=== PATIENT | female | born 1990 | race Caucasian/White ===

== ENCOUNTER 2020-05-01 08:37 | Outpatient (REF) | payer MEDICARE, MEDICAID, SELFPAY | END 2020-05-01 08:38 | disposition home or self-care (01) | LOC: HO.WFDLDS 08:37 | PROVIDERS: PCP Internal Medicine; Visit Provider Internal Medicine | DX: Z20.828 Contact with and (suspected) exposure to other viral communicable diseases (principal) | CPT/HCPCS: 36415; 87635 ==

== ENCOUNTER → 2020-12-07 13:15 | Outpatient (BNVA) | payer SELFPAY | PROVIDERS: PCP Internal Medicine; Visit Provider Internal Medicine | DX: Z02.79 Encounter for issue of other medical certificate (principal) ==

== ENCOUNTER 2021-05-17 10:39 | Outpatient (REF) | payer MEDICARE, MEDICAID, SELFPAY ==
[2021-05-17 16:41] LABS: CT PCR NOT DETECTED (Not Detect.); NG PCR NOT DETECTED (Not Detect.)
[2021-05-18 04:07] LABS: HBc Num1 0.16 S/CO (0.00-0.79); Hepatitis B Core Antibody Nonreactive (Nonreactive)
[2021-05-18 04:08] LABS: HIV AB/AG Nonreactive (Nonreactive); HIV Num 1 0.06 S/CO (0.00-0.99); ~HepC Num1 0.07 S/CO (0.00-0.79); ~Hepatitis C Antibody Nonreactive (Nonreactive)
[2021-05-18 04:20] LABS: Syphilis Screen Nonreactive (Nonreactive)
[2021-05-18 08:29] LABS: BV Int Neg Control Negative (Negative); BV Int Pos Control Positive (Positive)
== END 2021-05-17 10:40 | disposition home or self-care (01) ==
LOC: HO.LAB 10:39
PROVIDERS: PCP Internal Medicine; Visit Provider Advanced Practice Midwife
DX: Z01.419 Encounter for gynecological examination (general) (routine) without abnormal findings (principal); Z11.3 Encounter for screening for infections with a predominantly sexual mode of transmission; Z11.4 Encounter for screening for human immunodeficiency virus [HIV]; Z20.2 Contact with and (suspected) exposure to infections with a predominantly sexual mode of transmission; N89.8 Other specified noninflammatory disorders of vagina; N63.11 Unspecified lump in the right breast, upper outer quadrant
CPT/HCPCS: 36415; 86704; 86780; 86803; 87389; 87480; 87491; 87510; 87591; 87660; 99212

== ENCOUNTER 2021-05-18 08:34 | Outpatient (REF) | payer MEDICARE, MEDICAID, SELFPAY ==
--- NOTE | ~2021-05-18 | MM_ITS ---
EXAMINATION: MM DIAGNOSTIC DIGITAL BREAST TOMOSYNTHESIS, BILATERAL US DIAGNOSTIC ULTRASOUND BREAST, RIGHT CLINICAL INFORMATION: 30-year-old with recent tenderness upper outer right breast and associated palpable nodule noted by patient. No known family history breast cancer. No prior breast imaging. The lifetime risk of breast cancer based on the Tyrer-Cuzick Model is 12%. COMPARISON: None (current study represents initial baseline exam). TECHNIQUE: Digital breast tomosynthesis is performed in both the craniocaudal and mediolateral oblique views along with computer-aided detection (CAD). Synthesized 2D images are generated from the tomosynthesis. Ultrasound right breast is targeted to the palpable concern upper outer quadrant using grayscale imaging and color Doppler without and with harmonics. FINDINGS: The breasts are heterogeneously dense, which may obscure small masses (ACR BI-RADS breast composition Category c). There is a smooth oval nodule at site of palpable concern upper outer quadrant right breast measuring approximately 1.2 x 0.8 cm. The remainder of the bilateral breasts are unremarkable. There is no architectural abnormality. No abnormal calcifications. The axilla and skin contours are unremarkable. Ultrasound right breast demonstrates an oval hypoechoic circumscribed nodule just beneath the skin at site of palpable concern 10:00 position 8 cm from nipple and measuring 1.2 x 0.7 cm. There is scattered internal color flow. Results are discussed with the patient at time of visit. The palpable nodule statistically most likely represents a fibroadenoma. Management options were discussed. Patient prefers ultrasound-guided core sampling rather then serial follow-up targeted ultrasound. Results are called to office ([facility]) for provider Quyen Garland CNM on 05/18/2021. MM/MM tomosynthesis diagnostic BI IMPRESSION: 1. Right: Circumscribed solid nodule upper outer quadrant 1.2 cm corresponding to palpable concern. 2. Left: No mammographic evidence of malignancy. ASSESSMENT: BI-RADS 4: Suspicious (subcategory 4A: Low suspicion for malignancy) RECOMMENDATION: Ultrasound-guided core biopsy right breast nodule. This patient's information was entered into a reminder system with a target due date for their next mammogram.
== END 2021-05-18 08:35 | disposition home or self-care (01) ==
LOC: HO.MAMMO 08:34
PROVIDERS: Visit Provider Advanced Practice Midwife
DX: N63.11 Unspecified lump in the right breast, upper outer quadrant (principal)
CPT/HCPCS: 76642; 77062; 77066

== ENCOUNTER 2021-06-05 09:58 | Outpatient (REF) | payer MEDICARE, MEDICAID, SELFPAY ==
--- NOTE | ~2021-06-05 | MM_ITS ---
EXAMINATION: ULTRASOUND GUIDED CORE BIOPSY BREAST, RIGHT POST PROCEDURE DIGITAL MAMMOGRAM, RIGHT CLINICAL INFORMATION: 30-year-old with palpable nodule upper outer right breast, likely fibroadenoma. COMPARISON: Mammography and right breast ultrasound 05/18/2021. FINDINGS: Proper informed consent is obtained from the patient after discussion of the procedure, potential risks and complications, and alternatives. Patient was given an opportunity for questions. The patient appeared to understand. The patient consented to the procedure and signed the consent form. GUIDANCE: Ultrasound-guided; aseptic technique. LESION: Solid nodule 10:00 right breast 8 cm from nipple measuring 1.2 cm. APPROACH: Lateral medial. ANESTHESIA: 9 mL carbonated 1% lidocaine. DERMATOTOMY: Single skin maverick dermatotomy performed. NEEDLE: 14-gauge Achieve core biopsy device with 13.5-gauge co-axial guide needle. CORES: 5. CLIP: HydroMARK; shape: butterfly. POST PROCEDURE UNILATERAL DIGITAL MAMMOGRAM: The post biopsy mammogram is performed in separate room using separate digital mammography equipment from the biopsy procedure. CC and ML views are obtained. The breasts are heterogeneously dense, which may obscure small masses (breast composition category: c). The clip marker is in position and corresponds to the nodule on prior mammography. No gross hematoma. The patient tolerated the procedure well. No immediate complications. Home instructions reviewed with the patient. Final pathology results are pending. MM/MM diagnostic mammo unilat RT IMPRESSION: 1. Status post ultrasound-guided core biopsy right breast. 2. Clip placed: HydroMARK; shape: butterfly. 3. Pathology pending. An addendum report will be issued.
== END 2021-06-05 09:59 | disposition home or self-care (01) ==
LOC: HO.MAMMO 09:58
PROVIDERS: PCP Internal Medicine; Visit Provider Surgery
DX: N63.11 Unspecified lump in the right breast, upper outer quadrant (principal); R92.8 Other abnormal and inconclusive findings on diagnostic imaging of breast
CPT/HCPCS: 19083; 77065; 88305; 99202

== ENCOUNTER → 2021-06-12 10:01 | Outpatient (BNVA) | payer MEDICARE, MEDICAID, SELFPAY | PROVIDERS: PCP Internal Medicine; Referring Provider Internal Medicine; Visit Provider Surgery | DX: R92.8 Other abnormal and inconclusive findings on diagnostic imaging of breast (principal); J45.909 Unspecified asthma, uncomplicated; F41.9 Anxiety disorder, unspecified; Z88.1 Allergy status to other antibiotic agents; Z88.0 Allergy status to penicillin | CPT/HCPCS: 99212 ==

== ENCOUNTER 2023-04-24 09:10 | Outpatient (AMB) | payer MEDICARE, MEDICAID, SELFPAY ==
--- NOTE | 2023-04-24 09:13 | A.OFFVIS_ITS ---
Intake Vital Signs 04/24/23 09:14 Height 5 ft 8 in Weight 169 lb BMI 25.7 BP 100/64 Intake Visit Reasons: Breast lump Intake Note: Right breast The patient agreed to use of a medical insurance coder during this encounter. Scribed for INDY Castañeda by Monisha Ivy medical insurance coder, on 04/24/2023 at 9:23 am EST. Water Attendant: Water Attendant Present (Sanam) Allergies amoxicillin [Augmentin] Allergy (Unknown, Verified 04/24/23 09:13) anaphylaxis clavulanic acid [Augmentin] Allergy (Unknown, Verified 04/24/23 09:13) anaphylaxis penicillin V Allergy (Unknown, Verified 04/24/23 09:13) anaphylaxis HPI HPI Comments History of Present Illness Details She is here today with concerns of lump in right breast in the area of her prior fibroadenoma removal. Denies breast tenderness. Does not believe weight changes is related to lump. Maternal grandmother hx of breast cancer. Currently not sexually active. Considering preserving her eggs and concerned about her fertility ability based on her passed miscarriages. Uses Mirena IUD for BC. Is interested in future and wants to remove IUD soon and give her body a break. [facility] Medical History Lump of right breast Anxiety COVID-19 Asthma Surgical History H/O dilation and curettage Family History Brother Asthma Maternal Grandmother Breast cancer Lung cancer Social History Household Members: None Housing: House Alcohol intake: never Patient Tobacco Use Status: Never used Tobacco Sexual orientation: Straight/Heterosexual Gender identity: Female Female Reproductive History Menstrual Age of Menarche: 14 Physical Exam Vital Signs: Last Vital Signs BP 100/64 04/24/23 09:14 BMI result Body Mass Index 25.7 Const General: cooperative, healthy appearing, no acute distress, well developed and alert Chest Other: pt. pointed to area at 10-11:00 right breast for her concerns, able to feel this lump while sitting up position. Area overall is lumpy. Chest palpation & inspection: normal inspection of the chest Breast/axilla inspection: normal inspection of the breasts (no puckering, dimpling, peau de orange, retraction, discharge, masses) Breast/axilla palpation: normal palpation of the breasts Assessment & Plan Assessment & Plan (1) Lump of right breast: Code(s): N63.10 - Unspecified lump in the right breast, unspecified quadrant Plan: Discussed: Breast US ordered. Follow up in person for results. All of her questions and concerns were addressed to the best of my ability and shared decision making. She is agreeable to plan of care. (2) control counseling: Code(s): Z30.09 - Encounter for other general counseling and advice on contraception Plan: Informed the longevity of IUD. If interested in future start PNV with folic acid. [facility] services for fertility without a partner options. Orders: Orders US breast RT complete Today N63.11 - Unspecified lump in the right breast, upper outer quadrant MM tomosynthesis diagnostic BI Today N63.11 - Unspecified lump in the right breast, upper outer quadrant, Z12.31 - Encounter for screening mammogram for malignant neoplasm of breast Coding Level of Care Code Est Pt Level 3 (79513) Diagnoses Lump of right breast N63.10 control counseling Z30.09
[2023-04-24 09:14] VITALS: BP 100/64; BMI 25.7
== END 2023-04-24 11:44 | disposition home or self-care (01) ==
PROVIDERS: PCP Internal Medicine; Visit Provider Advanced Practice Midwife
DX: N63.10 Unspecified lump in the right breast, unspecified quadrant (principal); Z30.09 Encounter for other general counseling and advice on contraception
CPT/HCPCS: 99213

== ENCOUNTER → 2023-04-24 09:10 | Outpatient (BNVA) | payer MEDICARE, MEDICAID, SELFPAY | PROVIDERS: PCP Internal Medicine; Visit Provider Advanced Practice Midwife | DX: N63.11 Unspecified lump in the right breast, upper outer quadrant (principal); Z30.09 Encounter for other general counseling and advice on contraception | CPT/HCPCS: 99212 ==

== ENCOUNTER → 2023-05-06 13:30 | Outpatient (BNV) | payer MEDICARE, MEDICAID, SELFPAY | PROVIDERS: PCP Advanced Practice Midwife; Visit Provider Radiology Diagnostic Radiology | DX: R92.333 Mammographic heterogeneous density, bilateral breasts (principal); D24.9 Benign neoplasm of unspecified breast | CPT/HCPCS: 77062; 77066; G0279 ==

== ENCOUNTER 2023-05-06 13:33 | Outpatient (REF) | payer MEDICARE, MEDICAID, SELFPAY | END 2023-05-06 13:34 | disposition home or self-care (01) | LOC: HO.MAMMO 13:33 | PROVIDERS: PCP Advanced Practice Midwife; Visit Provider Advanced Practice Midwife | DX: N63.11 Unspecified lump in the right breast, upper outer quadrant (principal) | CPT/HCPCS: 77062; 77066 ==

== ENCOUNTER 2023-05-21 14:29 | Outpatient (AMB) | payer MEDICARE, SELFPAY ==
[2023-05-21 14:38] VITALS: BP 100/69
--- NOTE | 2023-05-21 14:38 | A.OFFVIS_ITS ---
Intake Vital Signs 05/21/23 14:38 Height 5 ft 8 in BP 100/69 Intake Visit Reasons: Breast Mammo/Follow up Intake Note: pt would like referral to [facility] The patient agreed to use of a medical laboratory manager during this encounter. Scribed for INDY Castañeda by Ashley Palma, medical laboratory manager, on 05/21/2023 at 2:46 pm, EST. Wardrobe Image Consultant: Wardrobe Image Consultant Present (Sanam) Allergies amoxicillin [Augmentin] Allergy (Unknown, Verified 05/21/23 14:38) anaphylaxis clavulanic acid [Augmentin] Allergy (Unknown, Verified 05/21/23 14:38) anaphylaxis penicillin V Allergy (Unknown, Verified 05/21/23 14:38) anaphylaxis HPI HPI Comments History of Present Illness Details The patient presents for a follow up of her bilateral breast mammogram, which was obtained on 05/06/2023. She is aware that a clip was applied. Denies being sexually active. The patient would like to be referred to [facility] for egg preservation. Reports she was check for fertility in the past at [facility] and was told she has double the amount of healthy eggs. [facility] Medical History (Updated 05/21/23 @ 14:55 by Ashley Palma) Lump of right breast Anxiety COVID-19 Asthma Surgical History (Updated 04/24/23 @ 10:00 by Monisha Ivy) Fibroadenoma of right breast H/O dilation and curettage Family History Brother Asthma Maternal Grandmother Breast cancer Lung cancer Social History Household Members: None Housing: House Alcohol intake: never Patient Tobacco Use Status: Never used Tobacco Sexual orientation: Straight/Heterosexual Gender identity: Female Female Reproductive History Menstrual Age of Menarche: 14 Review of Systems Const All systems reviewed & are unremarkable except as noted in HPI and below Reports no additional complaints Skin/Breast Reports system reviewed and no additional complaints, except as documented and Reports as per HPI Physical Exam Vital Signs: Last Vital Signs BP 100/69 05/21/23 14:38 Const General: cooperative, healthy appearing and no acute distress Chest Breast/axilla inspection: normal inspection of the breasts and normal inspection of the axillae Breast/axilla palpation: other (Small non tender lump at 10 o'clock, nontender right breast) Skin General skin exam: no rashes or lesions noted Results Reviewed Results Reviewed: EXAMINATION: MM DIAGNOSTIC DIGITAL BREAST TOMOSYNTHESIS, BILATERAL obtained on 05/06/2023. CLINICAL INFORMATION: Patient complaining of palpable abnormality right breast 10:00 axis, approximately 8 cm from the nipple. This is in the same region as the previously biopsied benign fibroadenoma in this location. COMPARISON: Mammography: 05/18/2021 mammography and breasts ultrasound. 06/05/2021 right breast core biopsy with postbiopsy diagnostic mammography. TECHNIQUE: Digital breast tomosynthesis is performed in both the craniocaudal and mediolateral oblique views along with computer-aided detection (CAD). Synthesized 2D images are generated from the tomosynthesis. A marker was placed in the axillary tail of the right breast in the region of palpable concern. FINDINGS: The breasts are heterogeneously dense, which may obscure small masses (ACR BI-RADS breast composition Category c). There is redemonstration of a 1.1 x 0.6 x 1.1 cm oval mass subjacent to the palpable finding marker, with internal biopsy clip (butterfly-shaped) representing the known biopsied benign fibroadenoma in this location. The patient states this is in the exact location and feels exactly like the previously palpable abnormality, and mistakenly thought it had been excised, which it has not. It was barely biopsy, and remains present with biopsy clip present. No additional abnormalities are evident in this region or elsewhere in either breast. MM/MM tomosynthesis diagnostic BI IMPRESSION: There are no significant changes from prior study. The patient appears to be once again feeling the previously biopsied fibroadenoma in the right axillary tail region, 10:00 axis, 8 cm from the nipple, with measurements as above. The patient was confused, and had thought this fibroadenoma had been excised, which is not the case. It was merely biopsied, and remains present as a benign fibroadenoma with internal biopsy clip. Patient states there is no additional palpable abnormality at this time other than the 10:00 fibroadenoma. Clinical management recommended with consideration of excision, if felt warranted. ASSESSMENT: BI-RADS BI-RADS 2 - Benign Findings RECOMMENDATION: 1 year F/U Results were provided to the patient at time of visit by the technologist. This patient's information was entered into a reminder system with a target due date for their next mammogram. Assessment & Plan Assessment & Plan (1) Infertility, female: Code(s): N97.9 - Female infertility, unspecified Plan: I have placed a referral for [facility]. (2) Breast lump on right side at 10 o'clock position: Code(s): N63.11 - Unspecified lump in the right breast, upper outer quadrant Plan: We will continue to monitor the lump in the right breast. Call if any concerns if pain or increased size. Follow up will be for her next annual desk maker exam. (3) Abnormal ultrasound of breast: Code(s): R92.8 - Other abnormal and inconclusive findings on diagnostic imaging of breast (4) Encounter to discuss test results: Code(s): Z71.2 - Person consulting for explanation of examination or test findings Orders: Referrals Infertility Reproductive Referral (female) N97.9 - Female infertility, unspecified Coding Level of Care Code Est Pt Level 3 (72381) Diagnoses Infertility, female N97.9 Breast lump on right side at 10 o'clock position N63.11 Abnormal ultrasound of breast R92.8 Encounter to discuss test results Z71.2
== END 2023-05-21 15:05 | disposition home or self-care (01) ==
PROVIDERS: PCP Internal Medicine; Visit Provider Advanced Practice Midwife
DX: N97.9 Female infertility, unspecified (principal); N63.11 Unspecified lump in the right breast, upper outer quadrant; R92.8 Other abnormal and inconclusive findings on diagnostic imaging of breast; Z71.2 Person consulting for explanation of examination or test findings
CPT/HCPCS: 99213

== ENCOUNTER → 2023-05-21 14:29 | Outpatient (BNVA) | payer MEDICARE, MEDICAID, SELFPAY | PROVIDERS: PCP Internal Medicine; Visit Provider Advanced Practice Midwife | DX: Z71.2 Person consulting for explanation of examination or test findings (principal); R92.8 Other abnormal and inconclusive findings on diagnostic imaging of breast; N63.11 Unspecified lump in the right breast, upper outer quadrant; N97.9 Female infertility, unspecified | CPT/HCPCS: 99212 ==

== ENCOUNTER 2024-05-21 14:09 | Outpatient (AMB) | payer MEDICARE, SELFPAY ==
--- NOTE | 2024-05-21 14:21 | A.OFFVIS_ITS ---
Vital Signs 05/21/24 14:22 Height 5 ft 8 in Weight 158 lb BMI 24.0 BP 112/70 Intake Visit Reasons: DESCRIPTIVE CATALOG LIBRARIAN annual exam Intake Note: pt wants to discuss IUD removal Recreation Therapy Teacher: Recreation Therapy Teacher Present (Sanam) Allergies amoxicillin [Augmentin] Allergy (Unknown, Verified 05/21/24 14:22) anaphylaxis clavulanic acid [Augmentin] Allergy (Unknown, Verified 05/21/24 14:22) anaphylaxis penicillin V Allergy (Unknown, Verified 05/21/24 14:22) anaphylaxis HPI Comments Details: She is a premenopausal woman presenting for annual examination. Doing well with concerns: BTB w/IUD, plans a future . Has appt. w/[place] [facility]-06/21/24. Requests her IUD removal today. She tries to eat healthy and stays active with exercise. She denies vaginal itching and irritation. STI screening offered; she declined. Denies family history of breast, ovarian or colon cancer. Last pap smear 2018, negative. [facility] Medical History (Updated 05/21/24 @ 14:30 by Quyen Garland CNM) Lump of right breast Anxiety COVID-19 Asthma Surgical History (Updated 05/21/24 @ 14:43 by Quyen Garland CNM) Fibroadenoma of right breast H/O dilation and curettage Family History Brother Asthma Maternal Grandmother Breast cancer Lung cancer Social History Household Members: None Housing: House Alcohol intake: never Patient Tobacco Use Status: Never used Tobacco Sexual orientation: Straight/Heterosexual Gender identity: Female Female Reproductive History Menstrual Age of Menarche: 14 control method: progestin IUCD (Mirena 2017?) Date of last pap smear: 12/22/18 (neg pap and hpv) History of STI: Yes (hx Trich) Date of Mammogram: 05/06/23 (Birad 2) Review of Systems Const All systems reviewed & are unremarkable except as noted in HPI and below Reports as per HPI Eyes Reports no additional complaints ENT Reports no additional complaints Card Reports no additional complaints Resp Reports no additional complaints GI Reports as per HPI and Reports no additional complaints Reports as per HPI Musc Reports no additional complaints Skin/Breast Reports as per HPI Neuro Reports no additional complaints Psych Reports no additional complaints Endo Reports no additional complaints Wayne/Lymph Reports no additional complaints Aller/Immun Reports no additional complaints Physical Exam Vital Signs: Last Vital Signs BP 112/70 05/21/24 14:22 BMI result Body Mass Index 24.0 Const General: cooperative, healthy appearing, no acute distress, well developed and alert Orientation/consciousness: patient oriented x3 HEENT Head: Yes normal to inspection Eyes General: appearance normal, both eyes and all related structures Neck Neck: Yes normal visual inspection Thyroid: Thyroid normal Chest Chest palpation & inspection: normal inspection of the chest, mass (Right breast: round rubbery 1 cm mobile nontender mass at 10:00 ) and other (no puckering, dimpling, peau de orange, retraction, discharge, masses) Breast/axilla inspection: normal inspection of the breasts Breast/axilla palpation: normal palpation of the breasts Resp Effort & Inspection: normal respiratory effort GI Inspection: Yes normal to inspection Palpation (GI): Soft to palpation Rectal Exam - Female: deferred General: Yes bladder normal to palpation External Female Exam: normal external appearance and normal appearance of the urethra Speculum Exam - Vagina: normal appearance of the vagina, normal palpation and normal vaginal discharge Speculum Exam - Cervix: normal appearance of the cervix, normal palpation and Other cervical findings present (IUD strings at the os) Bimanual exam- vagina & uterus: normal bimanual exam, normal palpation, uterine size normal, bladder normal to palpation, normal palpation and non-tender Bimanual Exam- Adnexa, other: no masses Skin General skin exam: no rashes or lesions noted Rashes: no rashes Neuro General: patient oriented x3 Cognition (Neuro): normal cognition Extrem General: Yes normal to inspection Psych Attitude: cooperative Thought process: Normal thought process present Office Procedures Contraception Insert/Removal Details Details: IUD Removal Procedure: The patient was placed in the dorsal lithotomy position. A speculum was inserted vaginally and the cervix and strings were visualized at the os. A ring forcep was utilized, and the patient was asked to give a deep cough while the strings were grasped and gently tugged at the same time, removing the IUD device intact. Minimal bleeding was observed. All of the equipment was removed. The patient tolerated the procedure well and left the office in good condition. 32757 - Removal Assessment & Plan Assessment & Plan (1) Encounter for well woman exam with routine gynecological exam: Code(s): Z01.419 - Encounter for gynecological examination (general) (routine) without abnormal findings Category: Medical (2) Fibroadenoma: Code(s): D24.9 - Benign neoplasm of unspecified breast Qualifiers: Laterality: right Qualified Code(s): D24.1 - Benign neoplasm of right breast Plan Discussed: Current recommendations for pap smears per ASCCP guidelines. Pap smear obtained Breast awareness and periodic breast exams. Follow up if any changes with the breast exam, known fibroadenoma right breast at 10:00 o'clock. Maintain a healthy lifestyle including a well balanced diet and routine exercise. Monitor menstrual cycles. Start vitamins- the benefit of folic acid for the prevention of neural tube defects. Patient verbalizes understanding and agrees to the plan of care. She was given opportunity to ask questions and all questions were answered to the best of my ability. 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 This note is constructed using voice recognition software. While every effort has been made to ensure accuracy, optometric coordinator errors may have been included. Orders: Orders PAP + HPV E6/E7 rfx 18/45 Today Z01.419 - Encounter for gynecological examination (general) (routine) without abnormal findings Medications: New PNV,calcium [id number]-[id number] acid 27 mg iron- 1 mg ( Vitamins Plus Low Iron) 1 tab PO DAILY 90 tabs 4RF Coding Level of Care Code Est Pt Prev Care 18-39y(84661) Diagnoses Encounter for well woman exam with routine gynecological exam Z01.419 Fibroadenoma of right breast D24.1 Laterality: right CPT Codes Details - Contraception: 51828 - Removal ([id number]) Comment Add modifier for IUD removal procedure
[2024-05-21 14:22] VITALS: BP 112/70; BMI 24.0
== END 2024-05-21 15:07 | disposition home or self-care (01) ==
PROVIDERS: PCP Internal Medicine; Visit Provider Advanced Practice Midwife
DX: Z30.432 Encounter for removal of intrauterine contraceptive device (principal); Z01.419 Encounter for gynecological examination (general) (routine) without abnormal findings; D24.1 Benign neoplasm of right breast
CPT/HCPCS: 58301; G0101; Q0091

== ENCOUNTER 2024-05-21 14:09 | Outpatient (REF) | payer MEDICARE, SELFPAY ==
[2024-05-26 17:54] LABS: HPV mRNA E6/E7 Not Detected (Not Detected)
== END 2024-05-21 14:10 | disposition home or self-care (01) ==
LOC: HO.LNP 14:09
PROVIDERS: PCP Internal Medicine; Visit Provider Advanced Practice Midwife
DX: Z01.419 Encounter for gynecological examination (general) (routine) without abnormal findings (principal); Z30.432 Encounter for removal of intrauterine contraceptive device; D24.1 Benign neoplasm of right breast
CPT/HCPCS: 58301; 87624; 88175; G0101; Q0091

== ENCOUNTER 2025-05-31 14:46 | Outpatient (AMB) | payer MEDICARE, MEDICAID, SELFPAY ==
--- NOTE | 2025-05-31 14:56 | MHC.OFFVIS ---
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 Frame Changer concerns: plans infertility services at [facility], not covered with her insurance. Regular monthly menses. Currently is not sexually active. She reports occasional vaginal odor. STI screening offered; she accepts. She tries to eat healthy and stays active with exercise. Denies family history of breast, ovarian or colon cancer. Last pap smear 2023, negative. [facility] Medical History Lump of right breast Anxiety COVID-19 Asthma Surgical History Fibroadenoma of right breast H/O dilation and curettage Family History Brother Asthma Maternal Grandmother Breast cancer Lung cancer Social History Household Members: None Housing: House Alcohol intake: never Patient Tobacco Use Status: Never used Tobacco Sexual orientation: Straight/Heterosexual Gender identity: Female Female Reproductive History Menstrual Age of Menarche: 14 Duration of menses: 3-5 days Date of last menstrual period: 05/20/25 Total pregnancies: 2 Full term: 2 Number of Living Children: 2 Date of last pap smear: 05/21/24 (neg pap and hpv) History of STI: Yes (hx Trich) Review of Systems Const All systems reviewed & are unremarkable except as noted in HPI and below Reports as per HPI Eyes Reports no additional complaints ENT Reports no additional complaints Card Reports no additional complaints Resp Reports no additional complaints GI Reports as per HPI and Reports no additional complaints Reports as per HPI Musc Reports no additional complaints Skin/Breast Reports as per HPI Neuro Reports no additional complaints Psych Reports no additional complaints Endo Reports no additional complaints [place]/Lymph Reports no additional complaints Aller/Immun Reports no additional complaints Physical Exam Vital Signs: Last Vital Signs BP 104/60 05/31/25 14:57 BMI result Body Mass Index 23.9 Const General: cooperative, healthy appearing, no acute distress, well developed and alert Orientation/consciousness: patient oriented x3 HEENT Head: Yes normal to inspection Eyes General: appearance normal, both eyes and all related structures Neck Neck: Yes normal visual inspection Thyroid: Thyroid normal Chest Chest palpation & inspection: normal inspection of the chest and other (no puckering, dimpling, peau de orange, retraction, discharge, masses) Breast/axilla inspection: normal inspection of the breasts Breast/axilla palpation: normal palpation of the breasts Resp Effort & Inspection: normal respiratory effort GI Inspection: Yes normal to inspection Palpation (GI): Soft to palpation Rectal Exam - Female: deferred General: Yes bladder normal to palpation External Female Exam: normal external appearance and normal appearance of the urethra Speculum Exam - Vagina: normal appearance of the vagina, normal palpation and normal vaginal discharge Speculum Exam - Cervix: normal appearance of the cervix and normal palpation Bimanual exam- vagina & uterus: normal bimanual exam, normal palpation, uterine size normal, bladder normal to palpation, normal palpation and non-tender Bimanual Exam- Adnexa, other: no masses Skin General skin exam: no rashes or lesions noted Rashes: no rashes Neuro General: patient oriented x3 Cognition (Neuro): normal cognition Extrem General: Yes normal to inspection Psych Attitude: cooperative Thought process: Normal thought process present Assessment & Plan Assessment & Plan (1) Encounter for well woman exam with routine gynecological exam: Code(s): Z01.419 - Encounter for gynecological examination (general) (routine) without abnormal findings Category: Medical Plan Discussed: Current recommendations for pap smears per ASCCP guidelines. Breast awareness and periodic breast exams. Maintain a healthy lifestyle including a well balanced diet and routine exercise. Use condoms for STI and prevention. Patient verbalizes understanding and agrees to the plan of care. She was given opportunity to ask questions and all questions were answered to the best of my ability. RTO in one year for annual head porter baggage examination. This note is constructed using voice recognition software. While every effort has been made to ensure accuracy, account executive healthcare errors may have been included. Orders: Orders HIV Ab/Ag Today Z20.2 - Contact with and (suspected) exposure to infections with a predominantly sexual mode of transmission Syphilis Screen Today Z20.2 - Contact with and (suspected) exposure to infections with a predominantly sexual mode of transmission Bacterial Vaginosis Panel Today N89.8 - Other specified noninflammatory disorders of vagina Hepatitis B Surface Antigen Today Z20.2 - Contact with and (suspected) exposure to infections with a predominantly sexual mode of transmission Hepatitis C Antibody Reflex Today Z20.2 - Contact with and (suspected) exposure to infections with a predominantly sexual mode of transmission CT NG by PCR Vag/Cerv Today N89.8 - Other specified noninflammatory disorders of vagina Coding Level of Care Code Est Pt Prev Care [id number]) Diagnoses Encounter for well woman exam with routine gynecological exam Z01.419
[2025-05-31 14:57] VITALS: BP 104/60; BMI 23.9
--- OUTSIDE RECORDS SUMMARY | 2025-05-31 17:49 | XMS_ITS | Encounter Summary ---
Author Organization [facility] Address [address] [place] [address] Care Team Providers Care Pharmaceutical Specialty Representative Name Role Phone Shira Quiñones MD Primary Care Provider [phone] Encounter Details Date Type Department Care Team (Late st Contact Info) Description 12/03/2016 Orders Only [facility] [address] [place] [address] Blank Sargent MD [address] [place] [address] Social History Tobacco Use Types Packs/Day Years Used Date Smoking Tobacco: Never Assessed Comments Unknown Sex and Gender Information Value Date Recorded Sex Assigned at Female 05/25/2019 9:03 AM EDT Legal Sex Female 1:52 AM EDT Gender Identity Female 05/25/2019 9:03 AM EDT Sexual Orientation Straight 05/25/2019 9: 03 AM EDT documented as of this encounter Plan of Treatment Not on file documented as of this encounter Visit Diagnoses Not on filedocumented in this encounter Additional Health Concerns Infection Onset Date Last Indicated Resolved Time COVID-19 - Suspected infection 10/21/2019 10/21/2019 10/22/2019 5:10 PM EDT COVID-19 - Suspected infection 03/23/2021 03/23/2021 03/23/2021 11:20 PM EDT COVID-19 - Confirmed infection 03/23/2021 03/23/2021 05/18/2021 10:34 PM EDT documented as of this encounter Care Teams Pharmaceutical Specialty Representative Relationship Specialty Start Date End Date Shira Quiñones MD [address] [place] [address] [place] [address] PCP - General 05/31/25 documented as of this encounter
--- OUTSIDE RECORDS SUMMARY | 2025-05-31 17:50 | XMS_ITS | Encounter Summary ---
Author Organization [facility] Address [address] [place] [address] Care Team Providers Care Buffing Machine Operator Name Role Phone Shira Quiñones MD Primary Care Provider [phone] Encounter Details Date Type Department Care Team (Late st Contact Info) Description 12/30/2024 [employer] Message [facility] [address] [place] [address] Mychart, Generic Provider [address] [place], [place] [id number] Questionnaire Submission Social History Tobacco Use Types Packs/Day Years Used Date Smoking Tobacco: Never Smokeless Tobacco: Never Comments:: Alcohol Use Standard Drinks/Week Comments No 0 (1 standard drink = 0.6 oz pur e alcohol) Comments No Sex and Gender Information Value Date Recorded Sex Assigned at Female 05/25/2019 9:03 AM EDT Legal Sex Female 1:52 AM EDT Gender Identity Female 05/25/2019 9:03 AM EDT Sexual Orientation Straight 05/25/2019 9: 03 AM EDT Occupation Industry Job Start Date Job End Date unemployed Not on file 

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
--- OUTSIDE RECORDS SUMMARY | 2025-05-31 17:50 | XMS_ITS | Encounter Summary ---
Author Organization [facility] Address [address] [place] [address] Care Team Providers Care Surveyor'S Assistant Name Role Phone Shira Quiñones MD Primary Care Provider [phone] Encounter Details Date Type Department Care Team (Late st Contact Info) Description 12/25/2018 External Result Entry [facility] [address] [place] [address] Osvaldo Perez MD [address] [place] [address] Social History Tobacco Use Types Packs/Day Years [...] on file documented as of this encounter Procedures * Due to [place] law, this organization might not be sharing negative HIV tests. Procedure Name Priority Date/Time Associated Diagnosis Comments PAP SMEAR Routine 12/25/2018 documented in this encounter Results * Due to [place] law, this organization might not be sharing negative HIV tests. * HM Pap Smear (12/25/2018) 12/25/2018 us Unknown Provider HEALTH MAINTENANCE Final Res ult documented in this encounter Visit Diagnoses Not on filedocumented in this encounter Additional Health Concerns Infection Onset Date Last Indicated Resolved Time COVID-19 - Suspected infection 10/21/2019 10/21/2019 10/22/2019 5:10 PM EDT COVID-19 - Suspected infection 03/23/2021 03/23/2021 03/23/2021 11:20 PM EDT COVID-19 - Confirmed infection 03/23/2021 03/23/2021 05/18/2021 10:34 PM EDT documented as of this encounter Care Teams Surveyor'S Assistant Relationship Specialty Start Date End Date Shira Quiñones MD [address] [place] [address] [place] [address] PCP - General 05/31/25 documented as of this encounter
--- OUTSIDE RECORDS SUMMARY | 2025-05-31 17:50 | XMS_ITS | Encounter Summary ---
Author Organization [facility] Address [address] [place] [address] Care Team Providers Care Shorer Name Role Phone Shira Quiñones MD Primary Care Provider [phone] Reason for Visit * Reason Onset Date Comments Message for Dr. Perez 12/10/2022 Encounter Details Date Type Department Care Team (Late st Contact Info) Description 12/10/2022 Telephone [facility] Central Scheduling Department [address] [place] [id number] Telephone Intake, Staff Message for Dr. 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 Patient found a provider that is close to her home since she needs to be seen more often for those services. Patient wants to let you know that you're an amazing provider. Patient is not a patient that usually don't show or call she did cancel appt on a timely matter her appt with was on 10/25/2022 and she cancel her appt on 10/22/2022. Patient didn't try to been disrespectful to no show or call is really all about distance. Patient received a letter from Dr. Perez that she didn't call and no show. She is getting her care near her home. documented in this encounter Plan of Treatment Not on file documented as of this encounter Visit Diagnoses Not on filedocumented in this encounter Care Teams Shorer Relationship Specialty Start Date End Date Shira Quiñones MD [address] [place] [address] [place] [address] PCP - General 05/31/25 documented as of this encounter
--- OUTSIDE RECORDS SUMMARY | 2025-05-31 17:50 | XMS_ITS | Encounter Summary ---
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
== END 2025-05-31 16:03 | disposition home or self-care (01) ==
PROVIDERS: PCP Internal Medicine; Visit Provider Advanced Practice Midwife
DX: Z01.419 Encounter for gynecological examination (general) (routine) without abnormal findings (principal)
CPT/HCPCS: G0101

== ENCOUNTER 2025-05-31 14:46 | Outpatient (REF) | payer SELFPAY ==
[2025-05-31 23:14] LABS: Bacterial Vaginosis PCR NEGATIVE (Negative); Candida Group PCR NOT DETECTED (Not Detect); Candida glab krusei PCR NOT DETECTED (Not Detect); Trichomonas vaginalis PCR NOT DETECTED (Not Detect)
[2025-06-01 00:20] LABS: CT PCR NOT DETECTED (Not Detect.); NG PCR NOT DETECTED (Not Detect.)
== END 2025-05-31 14:47 | disposition home or self-care (01) ==
LOC: HO.LAB 14:46
PROVIDERS: PCP Internal Medicine; Visit Provider Advanced Practice Midwife
DX: Z01.419 Encounter for gynecological examination (general) (routine) without abnormal findings (principal); N89.8 Other specified noninflammatory disorders of vagina; Z20.2 Contact with and (suspected) exposure to infections with a predominantly sexual mode of transmission
CPT/HCPCS: 81515; 87491; 87591; G0101

== ENCOUNTER 2025-05-31 15:49 | Outpatient (REF) | payer MEDICARE, MEDICAID, SELFPAY | END 2025-05-31 15:50 | disposition home or self-care (01) | LOC: HO.LNP 15:49 | PROVIDERS: Visit Provider Advanced Practice Midwife | DX: Z13.89 Encounter for screening for other disorder (principal) ==